=== PATIENT | female | born 1965 | race Caucasian/White ===

== ENCOUNTER 2021-10-19 13:28 | Emergency (ER) | payer OTHER ==
[~2021-10-19] VITALS: Ht 162.6 cm; Wt 46.0 kg
[2021-10-19] MEDS ORDERED: BUPR8SUB SL (13:37)
[2021-10-19] MEDS ORDERED: LIDOCAINE 1% MDV 20ML VIAL As Ordered ONE (15:07)
[2021-10-19 18:13] VITALS: BP 122/70
== END 2021-10-19 18:14 | disposition home or self-care (01) ==
LOC: M ED 13:28
DX: R06.02 Shortness of breath (principal); J91.0 Malignant pleural effusion; C34.90 Malignant neoplasm of unspecified part of unspecified bronchus or lung; Z79.891 Long term (current) use of opiate analgesic; Z88.5 Allergy status to narcotic agent; F17.200 Nicotine dependence, unspecified, uncomplicated

== ENCOUNTER 2021-11-06 04:42 | Emergency (ER) | payer OTHER ==
[~2021-11-06] VITALS: Ht 162.6 cm; Wt 44.9 kg
[~2021-11-06 04:42] MED LIST: BUPR8SUB SL
[2021-11-06 06:45] VITALS: BP 101/57
== END 2021-11-06 06:52 | disposition home or self-care (01) ==
LOC: M ED 04:42
DX: I80.02 Phlebitis and thrombophlebitis of superficial vessels of left lower extremity (principal); C34.90 Malignant neoplasm of unspecified part of unspecified bronchus or lung; Z92.21 Personal history of antineoplastic chemotherapy; Z88.5 Allergy status to narcotic agent; F17.200 Nicotine dependence, unspecified, uncomplicated

== ENCOUNTER 2021-11-11 10:23 | Observation (INO) | payer OTHER ==
[~2021-11-11] VITALS: Ht 162.6 cm; Wt 49.2 kg
[~2021-11-11 10:23] MED LIST changes: +BUPR8SUB PO; -BUPR8SUB SL
[2021-11-11] MEDS ORDERED: FOLI1TAB11 PO (10:38)
[2021-11-11] MEDS ORDERED: VALT500T PO (10:38)
[2021-11-11] MEDS ORDERED: ONDA8TAB8 PO (10:38)
[2021-11-11] MEDS ORDERED: SENN-80 PO (10:38)
[2021-11-11] MEDS ORDERED: [UNRECOGNIZED DRUG - CODE] IV (10:38)
[2021-11-11] MEDS ORDERED: DICL1GEL3 TOP (10:38)
[2021-11-11] MEDS ORDERED: DRON2.5C11 PO (10:38)
[2021-11-11] MEDS ORDERED: IBUP-1114 PO (10:38)
[2021-11-11] MEDS ORDERED: ALBU2.5V10 INH (10:38)
[2021-11-11] MEDS ORDERED: TREL1AER PO (10:38)
[2021-11-11] MEDS ORDERED: NARC1SPR NARES (10:38)
[2021-11-11] MEDS ORDERED: KEYT1INJ IV (10:38)
[2021-11-11] MEDS ORDERED: PROC5TAB57 PO (10:38)
[2021-11-11 12:15] LABS: EOS # 0.2 10^3/uL (0.0-0.5); HEMATOCRIT 31.8 % (36.0-47.0); HEMOGLOBIN 10.7 g/dl (12.0-15.5); LYMPH # 0.6 10^3/uL (1.5-5.0); MEAN CORPUSCULAR HEMOGLOBIN 29.1 pg (27.0-33.0); MEAN CORPUSCULAR HGB CONC 33.6 g/dl (32.0-36.5); MEAN CORPUSCULAR VOLUME 86.4 fl (80.0-96.0); MONO # 0.6 10^3/uL (0.0-0.8); MONO % 17.7 % (2.0-8.0); NEUTROPHILS # 1.8 10^3/uL (1.5-8.5); NEUTROPHILS % 56.3 % (36.0-66.0); PLATELET COUNT, AUTOMATED 169 10^3/uL (150-450); RED BLOOD COUNT 3.68 10^6/uL (4.00-5.40); WHITE BLOOD COUNT 3.3 10^3/uL (4.0-10.0)
[2021-11-11 12:41] LABS: INR 1.01; PROTHROMBIN TIME 13.7 SECONDS (12.7-14.5)
[2021-11-11 12:53] LABS: BLOOD UREA NITROGEN 12 MG/DL (7-18); CALCIUM LEVEL 8.7 MG/DL (8.5-10.1); CARBON DIOXIDE LEVEL 31 MEQ/L (21-32); CHLORIDE LEVEL 102 MEQ/L (98-107); CREATININE FOR GFR 0.54 MG/DL (0.55-1.30); GLOMERULAR FILTRATION RATE > 60.0 (>51); GLUCOSE, FASTING 104 MG/DL (70-100); POTASSIUM SERUM 4.1 MEQ/L (3.5-5.1); SODIUM LEVEL 137 MEQ/L (136-145)
[2021-11-11] MEDS ORDERED: MORPHINE 2 MG/ML 1ML VIAL IV PRN (14:05)
[2021-11-11 14:35] LABS: RSV AMPLIFICATION NEGATIVE (NEGATIVE)
[2021-11-11] MEDS ORDERED: CARB5INJ3 IV (14:43)
[2021-11-11] MEDS ORDERED: MIRA1POW3 PO (14:43)
[2021-11-11] MEDS ORDERED: HOME MED LIST COMPLETE! XX SCH (14:45)
[2021-11-11] MEDS ORDERED: PROCHLORPERAZINE 5MG TAB PO PRN (15:10)
[2021-11-11] MEDS ORDERED: ALBUTEROL SULFATE 2.5 MG/0.5 ML INH NEB SOLN INH PRN (15:10)
[2021-11-11] MEDS ORDERED: BUPR8SUB PO (15:27)
[2021-11-11] MEDS: BUPRENORPHINE HCL 8MG SUBINGUAL TABLET SL SCH (16:53)
[2021-11-11 17:23] VITALS: BP 107/67
[2021-11-11] MEDS ORDERED: HEPARIN SOD (PORCINE) 5000UNITS/ML 1ML VIAL/SYRINGE SQ ONE (18:30)
[2021-11-11] MEDS ORDERED: MIRALAX *UNIT DOSE* 17GM PACKET PO ONE (18:30)
[2021-11-11 20:00] VITALS: BP 98/58
[2021-11-11] MEDS: SYMBICORT 160/4.5MCG INHALER 6GM INH SCH (20:41)
[2021-11-11] MEDS ORDERED: PILL CUTTER 1 EACH XX PRN (20:50)
[2021-11-11] MEDS ORDERED: BUPRENORPHINE HCL 8MG SUBINGUAL TABLET SL SCH (21:00)
[2021-11-12] VITALS: BP 90/55
[2021-11-12] MEDS ORDERED: ACETAMINOPHEN TAB 650MG DOSE (2X325MG) PO PRN (00:30)
[2021-11-12] MEDS ORDERED: KETOROLAC 30 MG/ML 1ML VIAL IV ONE (00:45)
[2021-11-12 04:00] VITALS: BP 99/54
[2021-11-12 06:18] LABS: HEMATOCRIT 29.6 % (36.0-47.0); HEMOGLOBIN 9.6 g/dl (12.0-15.5); MEAN CORPUSCULAR HEMOGLOBIN 28.1 pg (27.0-33.0); MEAN CORPUSCULAR HGB CONC 32.4 g/dl (32.0-36.5); MEAN CORPUSCULAR VOLUME 86.5 fl (80.0-96.0); PLATELET COUNT, AUTOMATED 152 10^3/uL (150-450); RED BLOOD COUNT 3.42 10^6/uL (4.00-5.40); WHITE BLOOD COUNT 2.5 10^3/uL (4.0-10.0)
[2021-11-12] MEDS ORDERED: KETOROLAC 30 MG/ML 1ML VIAL IV PRN (06:35)
[2021-11-12 06:55] LABS: BLOOD UREA NITROGEN 13 MG/DL (7-18); CALCIUM LEVEL 8.7 MG/DL (8.5-10.1); CARBON DIOXIDE LEVEL 29 MEQ/L (21-32); CHLORIDE LEVEL 105 MEQ/L (98-107); CREATININE FOR GFR 0.49 MG/DL (0.55-1.30); GLOMERULAR FILTRATION RATE > 60.0 (>51); GLUCOSE, FASTING 111 MG/DL (70-100); POTASSIUM SERUM 3.9 MEQ/L (3.5-5.1); SODIUM LEVEL 137 MEQ/L (136-145)
[2021-11-12] MEDS: SYMBICORT 160/4.5MCG INHALER 6GM INH SCH (07:30)
[2021-11-12 08:00] VITALS: BP 96/58
[2021-11-12] MEDS ORDERED: TIOTROPIUM INHALER/CAPSULE (SPIRIVA) INH SCH (08:00)
[2021-11-12] MEDS: BUPRENORPHINE HCL 8MG SUBINGUAL TABLET SL SCH (08:28)
[2021-11-12] MEDS ORDERED: MIRALAX *UNIT DOSE* 17GM PACKET PO SCH (09:00)
[2021-11-12] MEDS ORDERED: FOLIC ACID 1MG TAB PO SCH (09:00)
[2021-11-12 11:28] LABS: LDH LACTATE DEHYDROGENASE 196 U/L (84-246)
[2021-11-12 12:00] VITALS: BP 97/58
[2021-11-12 13:52] VITALS: BP 110/63
[2021-11-12 15:10] LABS: PH BODY FLUID 7.529 UNITS (NOT ESTABLISHED); SOURCE, BODY FLUID pH PLEURAL
[2021-11-12 15:22] LABS: APPEARANCE, BODY FLUID CLOUDY (CLEAR); PLEURAL FL COLOR YELLOW (COLORLESS); SOURCE, BODY FLUID PLEURAL
[2021-11-12 16:28] LABS: AMYLASE, BODY FLUID 42 U/L (NOT ESTABLISHED); CHOLESTEROL, BODY FLUID 87 MG/DL (NOT ESTABLISHED); LDH, BODY FLUID 337 U/L (NOT ESTABLISHED); SOURCE, BODY FLUID ALBUMIN PLEURAL; SOURCE, BODY FLUID AMYLASE PLEURAL; SOURCE, BODY FLUID CHOL PLEURAL; SOURCE, BODY FLUID GLUCOSE PLEURAL; SOURCE, BODY FLUID LDH PLEURAL; SOURCE, BODY FLUID TOT PROTEIN PLEURAL; SOURCE, BODY FLUID TRIG PLEURAL; TOTAL PROTEIN, BODY FLUID 3.9 G/DL (NOT ESTABLISHED); TRIGLYCERIDE, BODY FLUID 23 MG/DL (NOT ESTABLISHED)
== END 2021-11-12 15:33 | disposition home or self-care (01) ==
LOC: M ED 10:23 → M ED INP 14:02 → ENRESERV 16:34 → M PCU 17:10
PROVIDERS: ADMIT Internal Medicine; ATTEND Internal Medicine
DX: C34.90 Malignant neoplasm of unspecified part of unspecified bronchus or lung (principal); J91.0 Malignant pleural effusion; C78.7 Secondary malignant neoplasm of liver and intrahepatic bile duct; R07.1 Chest pain on breathing; M79.89 Other specified soft tissue disorders; I80.02 Phlebitis and thrombophlebitis of superficial vessels of left lower extremity; Z79.899 Other long term (current) drug therapy; Z79.51 Long term (current) use of inhaled steroids; Z88.5 Allergy status to narcotic agent; F17.200 Nicotine dependence, unspecified, uncomplicated
CPT/HCPCS: 32555; 36415; 71045; 71250; 80048; 82042; 82150; 82465; 82945; 83615; 83986; 84157; 84478; 85025; 85027; 85610; 85730; 87040; 87070; 87075; 87102; 87116; 87205; 87206; 87631; 88108; 88305; 88313; 89051; 93971; 94640; 96372; 96374; 96376; 99284; J1644; J1885